=== PATIENT | male | born 1960 | race Caucasian/White ===

== ENCOUNTER 2017-01-24 07:35 | Outpatient (CLI) | payer OTHER ==
[~2017-01-24 07:35] MED LIST: HCTZ-METOPROLOL1 TA1; LOSARTAN POTASS25 MG; OMEPRAZOLE D/R20 M1
== END 2017-01-24 22:07 | disposition home or self-care (01) ==
LOC: MLB 07:35
PROVIDERS: ATTEND Family Medicine
DX: Z13.6 Encounter for screening for cardiovascular disorders (principal); I10 Essential (primary) hypertension